=== PATIENT | male | born 1995 | race Caucasian/White ===

== ENCOUNTER 2016-07-31 22:53 | Emergency (ER) | payer SELFPAY ==
[~2016-07-31] VITALS: Ht 188 cm; Wt 75.0 kg
[2016-07-31 23:14] VITALS: BP 133/82; PULSE 69; RESP 16; TEMP 98; O2SAT 99
--- NOTE | 2016-07-31 23:32 | PD ---
HPI Chief Complaint: Oral / Dental Pain or Problem Time Seen by Provider: 23:40 Travel History International Travel<30 days: No Contact w/Intl Traveler<30days: No Traveled to known affect area: No History of Present Illness HPI 20-year-old male presents to the emergency department for complaint of dental device issue. Patient has braces in place with wires to the lingual surface of the dentition and on his upper incisor has an area with a broken wire since yesterday. Patient states the ear areas causing some tongue irritation. Patient is visiting here as an exchange student and does not have access to his package collector. Patient denies other concerns or complaints. PFSH Past Medical History Narrative Medical Braces Social History Tobacco Use: No Allergies-Medications (Allergen,Severity, Reaction): Coded Allergies: No Known Allergies (Unverified , 07/31/16) Reported Meds & Prescriptions Reported Meds & Active Scripts Active No Active Prescriptions or Reported Medications Review of Systems General / Constitutional: No: Fever HENT: Positive: Dental Difficulties, No: Gingival Bleeding Skin: No Rash Physical Exam Narrative GENERAL: Well-developed well-nourished male in no acute distress no respiratory distress SKIN: Warm and dry. ENT: Airway is patent mucous membranes moist no ulceration or laceration to the tongue lingual surface of the #8 tooth has exposed dental wire coil without dental glue in place wire appears stable and not loose. Data Data Last Documented VS Vital Signs Date Time Temp Pulse Resp B/P Pulse Ox O2 Delivery O2 Flow Rate FiO2 07/31/16 23:14 98.0 69 16 133/82 99 MDM Medical Decision Making Medical Screen Exam Complete: Yes Emergency Medical Condition: Yes Medical Record Reviewed: Yes Differential Diagnosis Broken dental device, tongue contusion/abrasion Narrative Course Patient presents with exposed dental wire on the lingual surface of the #8 dentition the wire is intact and not dangling and patient is not at risk for wire dislodging for him to aspirate or swallow. Area is exposed and causing some subjective irritation of the tongue and patient would benefit by applying dental paraffin to the area and then following up with an package collector on Wednesday. Diagnosis Primary Impression: Pain in mouth Additional Impression: Aftercare, orthodontic Referrals: Dentist 3 days Additional Instructions: apply dental paraffin to dental device/braces May also apply Orajel sparingly to affected areas Recommend soft diet follow up with dentist/Co Director Return to the emergency department for any concerns or change in condition Scripts No Active Prescriptions or Reported Meds Disposition: 01 DISCHARGE HOME Condition: Stable Shanell Vallejo MD Jul 31, 2016 23:32
== END 2016-07-31 23:48 | disposition home or self-care (01) ==
LOC: PHEFT 22:53
DX: K13.79 Other lesions of oral mucosa (principal); Z46.4 Encounter for fitting and adjustment of orthodontic device
CPT/HCPCS: 99282